=== PATIENT | male | born 1945 ===

== ENCOUNTER 2024-02-25 08:33 | Outpatient (REF) | payer OTHER, SELFPAY ==
[2024-02-25 08:53] LABS: MANUAL DIFF FLAG NO
[2024-02-25 09:44] LABS: Basophils Percent Auto 0.2 % (0-2); Eosinophils Absolute Auto 0.1 X10*3/uL (0.0-0.4); Eosinophils Percent Auto 1.2 % (0-4); Hematocrit 40.6 % (42.0-52.0); Hemoglobin 13.5 g/dl (14.0-18.0); Imm Gran Abs Auto 0.02 X10*3/uL (0.00-0.03); Imm Gran Pct Auto 0.3 % (0.0-0.4); Lymphocytes Absolute Auto 1.8 X10*3/uL (1.2-4.9); Lymphocytes Percent Auto 31.3 % (20-40); Mean Corpuscular HGB Conc 33.3 g/dl (31.0-36.0); Mean Corpuscular Hemoglobin 33.7 pg (27.0-33.0); Mean Corpuscular Volume 101.2 fL (80.0-98.0); Mean Platelet Volume 11.4 fL (9.4-12.4); Monocytes Absolute Auto 0.6 X10*3/uL (0.1-1.2); Monocytes Percent Auto 10.3 % (2-11); Neutrophils Absolute Auto 3.3 x10*3/uL (2.0-8.3); Neutrophils Percent Auto 56.7 % (45-73); Platelet Count 136 X10*3/uL (160-400); Red Blood Count 4.01 X10*6/uL (4.60-5.80); Red Cell Distribution Width 12.6 % (11.0-16.0); White Blood Count 5.9 X10*3/uL (4.8-10.8)
[2024-02-25 10:13] LABS: Parathyroid Hormone Intact 76.2 pg/mL (8.7-77.1)
[2024-02-25 10:15] LABS: Alanine Aminotransferase 13 U/L (0-40); Albumin Level 4.1 g/dL (3.5-5.0); Alkaline Phosphatase 67 U/L (39-117); Anion Gap 16 (12-20); Aspartate Amino Transferase 18 U/L (5-37); Bilirubin Total 0.6 mg/dL (0.0-1.0); Blood Urea Nitrogen 15 mg/dL (9-16); Calcium 7.5 mg/dL (8.4-10.2); Carbon Dioxide 27 mmol/L (22-29); Chloride 104 mmol/L (96-108); Cholesterol 197 mg/dL (<200); Estimated Glomerular Filt Rate > 60; Glucose Random 91 mg/dL (60-115); HDL Cholesterol 74 mg/dL (>40); LDL Cholesterol Calculated 107 mg/dL (<100); Phosphorus 3.5 mg/dL (2.7-4.5); Potassium 3.9 mmol/L (3.3-5.1); Sodium 143 mmol/L (135-145); Total Protein 7.1 g/dL (6.5-8.0); Triglycerides 80 mg/dL (<150)
[2024-02-25 11:08] LABS: Folate 10.4 ng/mL (> or = 4.0); Prostate Specific Antigen Scr 2.31 ng/mL (<0.05-4.0); Vitamin B12 872 pg/mL (200-900)
== END 2024-02-25 08:34 | disposition home or self-care (01) ==
LOC: HO.LAB 08:33
PROVIDERS: PCP Internal Medicine; Visit Provider Internal Medicine
DX: E78.00 Pure hypercholesterolemia, unspecified (principal); E83.52 Hypercalcemia; F02.80 Dementia in other diseases classified elsewhere, unspecified severity, without behavioral disturbance, psychotic disturbance, mood disturbance, and anxiety; F32.9 Major depressive disorder, single episode, unspecified; I10 Essential (primary) hypertension; N40.0 Benign prostatic hyperplasia without lower urinary tract symptoms; Z12.5 Encounter for screening for malignant neoplasm of prostate
CPT/HCPCS: 36415; 80053; 80061; 82306; 82607; 82746; 83970; 84100; 84153; 85025

== ENCOUNTER 2024-06-29 13:05 | Outpatient (AMB) | payer OTHER, SELFPAY ==
[2024-06-29 13:10] VITALS: BP 100/60; PULSE 51; BMI 18.9
--- NOTE | 2024-06-29 13:10 | A.OFFVIS_ITS ---
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 Not much history from patient due to dementia. His family including his and granddaughter are here. We also have a paraprofessional interpreter assisting. Essentially, patient was living in [place] but has now moved to the local area. They are not able to clearly say what the cardiac problems. Per an echocardiogram at [facility], LVEF was diminished at 30-35%. At that time, it seems that he was admitted for witnessed syncope/unresponsiveness and chest pain. After that, it appears that the patient had an implantable loop recorder placed after returning to his [place]. Now he is moving to the local area. He denies any clear-cut complaints like angina or shortness of breath. He states he feels okay. [facility] Medical History (Updated 06/29/24 @ 14:09 by Levi Ochoa MD) Implantable loop recorder present Cardiomyopathy Dementia Surgical History (Updated 06/29/24 @ 13:29 by Jana Camacho) History of thyroid surgery Family History (Updated 06/29/24 @ 13:31 by Jana Camacho) Father Cancer Mother No problems noted. Brother Heart attack Social History (Updated 06/29/24 @ 13:32 by Jana Camacho) Alcohol intake: never Patient Tobacco Use Status: Former Tobacco user Review of Systems Const Denies weakness ENT Denies dizziness Card Denies chest pain, Denies chest pain with activity, Denies syncope, Denies rapid heart rate, Denies pedal edema, Denies edema, Denies leg edema, Denies lightheadedness, Denies palpitations, Denies dyspnea, Denies dyspnea on exertion and Denies orthopnea Resp Denies cough, Denies dyspnea and Denies dyspnea on exertion GI Denies hematochezia and Denies change in stool character Musc Denies abnormal gait, Denies muscle cramps, Denies muscle weakness, Denies numbness, Denies radiating pain into limb and Denies tingling Neuro Denies abnormal gait, Denies dizziness, Denies syncope, Denies numbness, Denies tingling and Denies weakness Endo Denies palpitations Physical Exam Vital Signs: Last Vital Signs Pulse 51 06/29/24 13:10 BP 100/60 06/29/24 13:10 BMI result Body Mass Index 18.9 Const General: comfortable and no acute distress Orientation/consciousness: patient oriented x3 HEENT Other: Unremarkable Head: Yes normal to inspection Neck Neck: Yes normal visual inspection Chest Chest palpation & inspection: normal inspection of the chest Resp Auscultation: clear to auscultation bilaterally Cardio Palpation: normal PMI Heart sounds: S1 normal heart sound present, S2 normal heart sound present, no gallops, no murmurs and no rubs GI Palpation (GI): Soft to palpation Back/Spine/Pelvis Other: unremarkable Skin General skin exam: no rashes or lesions noted Neuro General: patient oriented x3 Extrem General: Yes normal to inspection Psych Mental Status: mental status grossly normal Office Procedures EKG Details: EKG with underlying sinus bradycardia at 51/Min; leftward axis; borderline GA prolongation to 202 millisecond; [place]. [id number]-[id number], Complete Assessment & Plan Assessment & Plan (1) Cardiomyopathy: Code(s): I42.9 - Cardiomyopathy, unspecified Category: Medical Plan: Per echocardiogram at [facility] in 2021, LVEF 30-35% with severe global hypokinesis. There was fopo-xn-uxnyvajw mitral regurgitation. Need to obtain cardiac records from [place]. Unclear what kind of workup he has had. Patient or family do not know. Clinically, he seems quite compensated. (2) Implantable loop recorder present: Code(s): Z95.818 - Presence of other cardiac implants and grafts Category: Medical Plan: We will arrange remote monitoring. It appears that was placed because of syncope. Plan Plan is to obtain echocardiogram, request old records from [place] and will transfer remote implantable loop recorder monitoring to us. Discussed with family. paraprofessional interpreter used. Orders: Orders CA echo transthoracic complete Today I42.9 - Cardiomyopathy, unspecified Coding Level of Care Code New Pt Level 4 (49338) Diagnoses Cardiomyopathy I42.9 Implantable loop recorder present Z95.818 CPT Codes EKG - CPT: 98608-Avpuglsbrztzjrfyn, Complete ([id number])
== END 2024-06-29 13:56 | disposition home or self-care (01) ==
PROVIDERS: PCP Internal Medicine; Visit Provider Internal Medicine
DX: I42.9 Cardiomyopathy, unspecified (principal); Z95.818 Presence of other cardiac implants and grafts
CPT/HCPCS: 93010; 99204

== ENCOUNTER → 2024-06-29 13:05 | Outpatient (BNVA) | payer OTHER, SELFPAY | PROVIDERS: PCP Internal Medicine; Visit Provider Internal Medicine | DX: I42.9 Cardiomyopathy, unspecified (principal); Z95.818 Presence of other cardiac implants and grafts | CPT/HCPCS: 93005; 99202 ==

== ENCOUNTER → 2024-07-22 10:22 | Outpatient (REF) | payer OTHER, SELFPAY ==
--- NOTE | 2024-07-22 10:24 | CA_ITS ---
Transthoracic Echocardiogram Patient (Last, First, Middle): Adonay Ventura, Gender: Male Date of : 1945 Age: 79 Procedure Date: 07/22/2024 Procedure Type: Transthoracic Echocardiogram Location: OP Height: 160.02 cm Weight: 50.8 kg BSA: 1.51 m2 Heart Rate: bpm BP: 120 / 70 mmHg Customer Servicer: NAYA Referring MD: Levi Ochoa MD Symptoms: I42.9 - Cardiomyopathy, unspecified Study Quality: Adequate ECG Rhythm: Sinus Conclusions: - The left ventricular systolic function is low normal. The visually estimated ejection fraction is between 50-55%. - The inferolateral wall is akinetic. Findings Left Ventricle Normal left ventricular cavity size. There is normal left ventricular wall thickness. The left ventricular systolic function is low normal. The visually estimated ejection fraction is between 50-55%. There is evidence of regional wall motion abnormalities. Diastolic function is normal for age. LV peak GLS -17.3%. Wall Motion Rest Echo Findings The inferolateral wall is akinetic. Right Ventricle Normal right ventricular cavity size and systolic function. Atria Both atria are normal in size. Aortic Valve There is a normal trileaflet aortic valve. There is mild calcification of the aortic valve. There is no aortic valve stenosis. There is trace (trivial) aortic valve regurgitation. Mitral Valve The mitral valve appears normal. There is mild mitral valve regurgitation. There is no mitral valve stenosis. Pulmonic Valve The pulmonic valve is likely normal. Tricuspid Valve There is no tricuspid valve regurgitation. Tricuspid regurgitation envelope is inadequate for calculation of right ventricular systolic pressure. Great Vessels The aorta was not well visualized. Venous The inferior vena cava is normal in size and collapses greater than 50% with inspiration. Pericardium/Pleural There is no evidence of pericardial effusion. Prior Study Comparison No prior study available for comparison. Recommendations, Care & Conclusions No obvious valvular pathology seen on this study. Measurements 2D Linear Measurements IVSd: 0.80 0.6-0.9/0.6-1.0 cm LVIDd: 4.26 3.9-5.3/4.2-5.9 cm LVIDd Index: 2.82 2.4-3.2/2.2-3.1 cm/m2 LVIDs: 2.98 2.0-3.6 cm LVPWd: 1.08 0.7-1.1 cm LA Diam: 2.70 2.7-3.8/3.0-4.0 cm LAIDs Index: 1.79 1.5-2.3 cm/m2 LV Mass: 160.45 67-162/88-224 g LV Mass Index: 106.26 43-95/49-115 g/m2 LVOT Diam: 2.00 3.0+(-)1.3 cm 2D Systolic Function EF 4C: 57.30 >55% EF 2C: 59.60 >55% EF BiP: 57.60 >55% Mitral Valve MV Pk E: 0.46 MV PK A: 0.72 MV Decel Time: 212.00 E/A: 0.60 E'Lateral: 7.72 E'Medial: 6.53 E/E' Med: 7.00 E/E' Lat: 5.90 PHT: 62.00 MVA PHT: 3.55 Decel [place]: 2.16 Aortic Valve AoV Pk Maximilian: 1.15 AoV Mn Maximilian: 0.77 AoV VTI: 0.23 AoV Pk Grad: 5.00 Aov Mn Grad: 3.00 JOHANN Cont.VTI: 2.95 LVOT LVOT Pk Maximilian: 1.07 LVOT Mn Maximilian: 0.72 LVOT VTI: 0.22 LVOT Pk Grad: 5.00 LVOT Mn Grad: 2.00 LVOT Diam: 2.00 LVOT Area: 3.14 Diastolic Function MV Pk E: 0.46 MV Pk A: 0.72 E/A: 0.60 E'Medial: 6.53 E/E' Med: 7.00 E' Laterial: 7.72 E/E' Lat: 5.90 Right Ventricle TAPSE (mm): 24.80 TVS' Maximilian: 10.20 Tricuspid Valve RA Press: 3.00 Great Vessels Aorta Sinus of Valsalva: 4.08 2.0-3.5 cm Updated in Other Vendor System with Status of Final Levi Ochoa MD electronically signed on 07/23/2024 6:35:34 PM with status of Final
== END ==
LOC: HO.CARD 10:22
PROVIDERS: PCP Internal Medicine; Visit Provider Internal Medicine
DX: I42.9 Cardiomyopathy, unspecified (principal)
CPT/HCPCS: 93306; 93356

== ENCOUNTER → 2024-07-22 10:24 | Outpatient (BNV) | payer OTHER, SELFPAY | PROVIDERS: PCP Internal Medicine; Visit Provider Internal Medicine | DX: I34.0 Nonrheumatic mitral (valve) insufficiency (principal); I35.8 Other nonrheumatic aortic valve disorders | CPT/HCPCS: 93306; 93356 ==

== ENCOUNTER 2024-08-03 10:59 | Outpatient (AMB) | payer OTHER, SELFPAY ==
[2024-08-03 11:23] VITALS: BP 116/60; PULSE 68; BMI 18.5
--- NOTE | 2024-08-03 11:23 | A.OFFVIS_ITS ---
Vital Signs 08/03/24 11:23 Height 5 ft 4 in Weight 108 lb 0.424 oz BMI 18.5 BP 116/60 Blood Pressure Location Lt brachial Position Sitting Pulse 68 Pulse Source Pulse Oximeter Intake Visit Reasons: * 1 mth f/up echo/ records [facility] Structural Analysis Engineer Required: Yes Structural Analysis Engineer Services: Structural Analysis Engineer Offered & Declined Allergies No Known Allergies Allergy (Verified 06/29/24 13:39) Medication List - Last Reconciled 08/03/24 by Levi Ochoa MD aspirin 81 mg PO DAILY escitalopram oxalate 5 mg PO DAILY rosuvastatin 40 mg PO DAILY tamsulosin 0.4 mg PO DAILY HPI Comments Details: Adonay returns for follow-up. Not much history from patient due to dementia. His family including his and daughter are here. Essentially, patient was living in [place] but has now moved to the local area. They are not able to clearly say what the cardiac problems. Per an echocardiogram at [facility], LVEF was diminished at 30-35%. At that time, it seems that he was admitted for witnessed syncope/unresponsiveness and chest pain. After that, it appears that the patient had an implantable loop recorder placed after returning to his [place]. Now he is moving to the local area. Patient himself has no cardiac symptoms whatsoever. [facility] Medical History (Updated 06/29/24 @ 14:09 by Levi Ochoa MD) Implantable loop recorder present Cardiomyopathy Dementia Surgical History (Updated 06/29/24 @ 13:29 by Jana Camacho) History of thyroid surgery Family History (Updated 06/29/24 @ 13:31 by Jana Camacho) Father Cancer Mother No problems noted. Brother Heart attack Social History (Updated 06/29/24 @ 13:32 by Jana Camacho) Alcohol intake: never Patient Tobacco Use Status: Former Tobacco user Review of Systems Const Denies chills, Denies fatigue, Denies fever(s), Denies weakness, Denies weight gain and Denies weight loss ENT Denies dizziness Card Denies chest pain, Denies chest pain with activity, Denies syncope, Denies rapid heart rate, Denies pedal edema, Denies edema, Denies leg edema, Denies lightheadedness, Denies palpitations, Denies dyspnea, Denies dyspnea on exertion, Denies orthopnea and Denies other Resp Denies cough, Denies dyspnea and Denies dyspnea on exertion GI Denies hematochezia and Denies change in stool character Musc Denies abnormal gait, Denies muscle cramps, Denies muscle weakness, Denies numbness, Denies radiating pain into limb and Denies tingling Neuro Denies abnormal gait, Denies dizziness, Denies syncope, Denies numbness, Denies tingling and Denies weakness Endo Denies fatigue and Denies palpitations Physical Exam Vital Signs: Last Vital Signs Pulse 68 08/03/24 11:23 BP 116/60 08/03/24 11:23 BMI result Body Mass Index 18.5 Const General: comfortable and no acute distress Orientation/consciousness: patient oriented x3 HEENT Other: Unremarkable Head: Yes normal to inspection Neck Neck: Yes normal visual inspection Chest Chest palpation & inspection: normal inspection of the chest Resp Auscultation: clear to auscultation bilaterally Cardio Palpation: normal PMI Heart sounds: S1 normal heart sound present, S2 normal heart sound present, no gallops, no murmurs and no rubs GI Palpation (GI): Soft to palpation Back/Spine/Pelvis Other: unremarkable Skin General skin exam: no rashes or lesions noted Neuro General: patient oriented x3 Extrem General: Yes normal to inspection Psych Mental Status: mental status grossly normal Assessment & Plan Assessment & Plan (1) Cardiomyopathy: Code(s): I42.9 - Cardiomyopathy, unspecified Category: Medical Plan: Cardiac studies reviewed. Per echocardiogram at [facility] in 2021, LVEF 30-35% with severe global hypokinesis. There was rkwd-ed-lejboboq mitral regurgitation. In the more recent echocardiogram at [place], LVEF 50-55%. Inferolateral akinesis. In another echocardiogram from [place], 2022, LVEF 50-55%. Inferolateral wall thinned/severely hypokinetic. Uuog-pw-qjcmzjey mitral regurgitation. Nata-ma-zrcuipvz aortic regurgitation with mild ascending aortic dilatation. RVSP 37 mm Hg. In the exercise stress echocardiogram at [place], 7 METS on Arnel protocol; negative ETT component; echocardiographic portion with evidence of prior inferolateral [place]. Overall, it seems that he has had a prior inferolateral myocardial infarction but no active symptoms. It does not appear that he underwent cardiac catheterization in the past and he does not need that at this time either as he has got no symptoms. Continue aspirin and statins. (2) Implantable loop recorder present: Code(s): Z95.818 - Presence of other cardiac implants and grafts Category: Medical Plan: Will need to transfer remote monitoring from his prior javascript ui developer. Plan Discussed with family. They understand and agree with plan. Total time spent including review of data, counseling, documentation, coordination of care-32 minutes. Coding Level of Care Code Est Pt Level 4 (25048) Diagnoses Cardiomyopathy I42.9 Implantable loop recorder present Z95.818
== END 2024-08-03 11:38 | disposition home or self-care (01) ==
PROVIDERS: PCP Internal Medicine; Visit Provider Internal Medicine
DX: I42.9 Cardiomyopathy, unspecified (principal); Z95.818 Presence of other cardiac implants and grafts
CPT/HCPCS: 99214

== ENCOUNTER → 2024-08-03 10:59 | Outpatient (BNVA) | payer OTHER, SELFPAY | PROVIDERS: PCP Internal Medicine; Visit Provider Internal Medicine | DX: I42.9 Cardiomyopathy, unspecified (principal); Z95.818 Presence of other cardiac implants and grafts | CPT/HCPCS: 99212 ==

== ENCOUNTER 2024-08-31 08:33 | Outpatient (REF) | payer OTHER, SELFPAY ==
[2024-08-31 09:01] LABS: MANUAL DIFF FLAG NO
[2024-08-31 09:15] LABS: Basophils Percent Auto 0.2 % (0-2); Eosinophils Absolute Auto 0.1 X10*3/uL (0.0-0.4); Eosinophils Percent Auto 1.5 % (0-4); Hematocrit 45.1 % (42.0-52.0); Hemoglobin 15.2 g/dl (14.0-18.0); Imm Gran Abs Auto 0.02 X10*3/uL (0.00-0.03); Imm Gran Pct Auto 0.4 % (0.0-0.4); Lymphocytes Absolute Auto 1.5 X10*3/uL (1.2-4.9); Lymphocytes Percent Auto 32.5 % (20-40); Mean Corpuscular HGB Conc 33.7 g/dl (31.0-36.0); Mean Corpuscular Hemoglobin 33.1 pg (27.0-33.0); Mean Corpuscular Volume 98.3 fL (80.0-98.0); Monocytes Absolute Auto 0.5 X10*3/uL (0.1-1.2); Monocytes Percent Auto 11.3 % (2-11); Neutrophils Absolute Auto 2.5 x10*3/uL (2.0-8.3); Neutrophils Percent Auto 54.1 % (45-73); Platelet Count 127 X10*3/uL (160-400); Red Blood Count 4.59 X10*6/uL (4.60-5.80); Red Cell Distribution Width 12.7 % (11.0-16.0); White Blood Count 4.7 X10*3/uL (4.8-10.8)
[2024-08-31 09:50] LABS: Alanine Aminotransferase 15 U/L (0-40); Albumin Level 4.1 g/dL (3.5-5.0); Alkaline Phosphatase 52 U/L (39-117); Anion Gap 15 (12-20); Aspartate Amino Transferase 19 U/L (5-37); Bilirubin Total 0.6 mg/dL (0.0-1.0); Blood Urea Nitrogen 17 mg/dL (9-16); Calcium 9.6 mg/dL (8.4-10.2); Carbon Dioxide 31 mmol/L (22-29); Chloride 100 mmol/L (96-108); Estimated Glomerular Filt Rate > 60; Glucose Random 103 mg/dL (60-115); Phosphorus 3.7 mg/dL (2.7-4.5); Sodium 142 mmol/L (135-145); Total Protein 7.3 g/dL (6.5-8.0)
[2024-08-31 10:08] LABS: Parathyroid Hormone Intact 44.1 pg/mL (8.7-77.1)
== END 2024-08-31 08:34 | disposition home or self-care (01) ==
LOC: HO.LAB 08:33
PROVIDERS: PCP Internal Medicine; Visit Provider Internal Medicine
DX: D69.6 Thrombocytopenia, unspecified (principal); E83.51 Hypocalcemia; E89.2 Postprocedural hypoparathyroidism; F02.80 Dementia in other diseases classified elsewhere, unspecified severity, without behavioral disturbance, psychotic disturbance, mood disturbance, and anxiety; I10 Essential (primary) hypertension
CPT/HCPCS: 36415; 80053; 83970; 84100; 85025

== ENCOUNTER 2024-09-27 08:50 | Outpatient (AMB) | payer OTHER, SELFPAY ==
--- NOTE | 2024-09-27 09:07 | A.OFFVIS_ITS ---
Intake Visit Reasons: history of hematuria Intake Note: New Patient presents for initial visit for hematuria Urology Medications: none Blood Thinner: aspirin * Smoker: former; quit 3-4yrs ago, smoked 50+yrs * visual blood 2months ago [employer] Required: Yes Accompanied by: Unknown Allergies No Known Allergies Allergy (Verified 09/27/24 09:37) Medication List - Last Reconciled 09/27/24 by BRENDON Gruber aspirin 81 mg PO DAILY escitalopram oxalate 5 mg PO DAILY rosuvastatin 40 mg PO DAILY HPI Comments Details: Adonay is a pleasantly confused 79-year-old Belarusian-speaking male patient of Dr. Leroy Bonilla who was accompanied by his daughter (Stan) and at today's office visit. He has a past medical history of dementia and cardiomyopathy. He presents to the office today as a new patient for gross hematuria. In discussion with the daughter who provides much of today's health history as patient suffers from dementia she reports patient had experienced an episode of gross hematuria for a few days a proximally 2 days ago. She does report a previous history of surgical intervention on the bladder and or the prostate however is unsure as to what procedure the patient had done in [place] where he used to live. She reports having followed up with a PCP at which time urology referral was made for further assessment evaluation. In office urinalysis results reviewed with the patient and his family today. We discussed at length potential causes of gross hematuria as well as further workup. When asked he does report a previous history of nicotine dependence for over 50 years. He reports smoking approximately 1 pack of cigarettes per day if not more. He reports quitting 3-4 years ago. In review of patient's chart it appears CT of the abdomen and pelvis without contrast was performed. These results no punctate nonobstructing renal calculi. There is thickening of the wall of the urinary bladder. This may be related to lack of distention but can be seen with infection and correlation with patient's urinalysis is recommended per radiology report. We discussed obtaining imaging with contrast given gross hematuria patient is experiencing and reporting. He does note episodes of urinary frequency throughout the day however does not find them bothersome at this time. He otherwise denies urinary urgency, incontinence, nocturia, dysuria, foul smelling urine, changes to urinary stream, flank pain, fever, and or chills. [facility] Medical History Implantable loop recorder present Cardiomyopathy Dementia Surgical History History of thyroid surgery Family History Father Cancer Mother No problems noted. Brother Heart attack Social History Alcohol intake: never Patient Tobacco Use Status: Former Tobacco user Review of Systems Const Unobtainable due to mental status Physical Exam Const General: cooperative, healthy appearing, comfortable, no acute distress, well developed, alert and awake Orientation/consciousness: patient oriented x3 Limitations: no limitations HEENT Head: Yes normal to inspection, Yes normocephalic and Yes atraumatic Ears: hearing grossly normal bilaterally Eyes General: appearance normal, both eyes and all related structures Neck Neck: Yes normal visual inspection and Yes trachea midline Chest Chest palpation & inspection: normal inspection of the chest Resp Effort & Inspection: normal respiratory effort and able to speak in complete sentences Cardio Rate: regular rate GI Inspection: Yes normal to inspection General: Yes no CVA tenderness Back/Spine/Pelvis Back: no CVA tenderness Skin General skin exam: no rashes or lesions noted Neuro General: patient oriented x3 Extrem General: Yes normal to inspection Psych Appearance: grossly normal and well kempt Speech and movement: Normal speech and movement present and Clear speech present Affect: normal affect Attitude: cooperative Insight: Limited insight present (Psych) Judgement: Limited judgement present (Psych) Assessment & Plan Assessment & Plan (1) Gross hematuria: Code(s): R31.0 - Gross hematuria Category: Medical (2) Nephrolithiasis: Code(s): N20.0 - Calculus of kidney Category: Medical Plan In office urinalysis results reviewed with the patient and his family today; will send for urine cytology. We discussed at length potential causes of gross hematuria as well as further workup to include CT urogram and in office cystoscopy for further assessment evaluation. BUN and creatinine ordered for imaging. Will obtain CT urogram for further assessment evaluation. Patient otherwise denies any bothersome urinary issues at this time. He reports be happy with current voiding parameters. Follow-up next available in office cystoscopy with imaging and labs to be completed prior; or sooner with any issues, concerns, and or questions. Orders: Orders CT urogram Today R31.0 - Gross hematuria Blood Urea Nitrogen Today R39.15 - Urgency of urination AMB Urinalysis Automated Today Z13.9 - Encounter for screening, unspecified Urine Cytology Today Z13.9 - Encounter for screening, unspecified Creatinine Today R39.15 - Urgency of urination Patient Instructions: The patient had an opportunity to ask questions regarding the treatment plan. All questions were answered. Physical exam, labs, and imaging were discussed and reviewed in detail. As well as risks, benefits, and discussion of treatment choices. No major barriers to understanding were identified. The patient expressed understanding and agreement with the above treatment plan. The patient was made aware they should contact our office by phone for worsening of their current condition, the appearance of new symptoms, or with any questions or concerns. Compliance is encouraged with any medications and follow up testing that is ordered. It is a privilege to be allowed the opportunity to participate in? your urological care.? Again, if you have any questions or concerns If you have any questions or concerns please do not hesitate to contact me. The office is [phone]. This note is constructed using voice recognition software. While every effort has been made to ensure accuracy agent contract clerk errors may have been included. Yours sincerely, BRENDON Gruber Coding Level of Care Code New Pt Level 3 (04331) Diagnoses Gross hematuria R31.0 Nephrolithiasis N20.0
== END 2024-09-27 09:54 | disposition home or self-care (01) ==
PROVIDERS: PCP Internal Medicine; Visit Provider Nurse Practitioner Family
DX: R31.0 Gross hematuria (principal); N20.0 Calculus of kidney
CPT/HCPCS: 99203

== ENCOUNTER 2024-09-27 08:50 | Outpatient (REF) | payer OTHER, SELFPAY ==
[2024-09-27 16:45] LABS: Urine Cytology See Pathology rpt
== END 2024-09-27 08:51 | disposition home or self-care (01) ==
LOC: HO.LNP 08:50
PROVIDERS: PCP Internal Medicine; Visit Provider Nurse Practitioner Family
DX: N20.0 Calculus of kidney (principal); R31.0 Gross hematuria
CPT/HCPCS: 88112; 99202

== ENCOUNTER 2024-11-03 09:42 | Outpatient (AMB) | payer OTHER, SELFPAY ==
--- NOTE | 2024-11-03 09:49 | A.OFFVIS_ITS ---
Intake Visit Reasons: Cysto(Hematuria) Intake Note: Pt presents to the office today for a Cystoscopy (hematuria) Cystoscope Lot: [id number] Exp:01/28/27 Allergies No Known Allergies Allergy (Verified 11/03/24 09:49) HPI Comments Details: Adonay is a pleasantly confused Romanian-speaking male. He is a patient of Dr. Bonilla. He is seen for the following urologic conditions - lower urinary tract symptoms Prior episode gross hematuria Here for check cystoscopy Enlarged prostate but otherwise normal bladder Start prostate medications Baseline dementia Hematuria CT imaging performed with thickening of the bladder wall [facility] Medical History History of nicotine dependence Implantable loop recorder present Cardiomyopathy Dementia Surgical History History of thyroid surgery Family History Father Cancer Mother No problems noted. Brother Heart attack Social History Alcohol intake: never Patient Tobacco Use Status: Former Tobacco user Review of Systems Const Denies chills and Denies fever(s) Card Reports no additional complaints and Denies syncope Resp Denies cough GI Denies abdominal pain and Denies heartburn Reports as per HPI and Denies change in libido Neuro Denies syncope Psych Denies change in libido Endo Denies change in libido Physical Exam Const General: cooperative, healthy appearing, comfortable and no acute distress Orientation/consciousness: patient oriented x3 HEENT Face and sinus: Yes normal facial exam Mouth: moist mucous membranes Neck Neck: Yes normal visual inspection, Yes full ROM and Yes trachea midline Chest Chest palpation & inspection: normal inspection of the chest Resp Effort & Inspection: normal respiratory effort, able to speak in complete sentences and no respiratory distress GI Inspection: Yes normal to inspection Back/Spine/Pelvis Cervical Spine: normal cervical lordosis Thoracic/Lumbar Spine: thoracic and lumbar spine normal to inspection Skin General skin exam: no rashes or lesions noted Neuro General: patient oriented x3, gait normal, tone normal and moves all extremities Extrem General: Yes normal to inspection and Yes capillary refill normal Office Procedures Cystoscopy Consent Discussed risk and benefit or proposed procedure with the patient. Information consent for procedure given to the patient. Discussed technical aspects, risks, benefits and alternatives in full. Addressed all of the patient's questions and concerns regarding the procedure. The patient demonstrated knowledge and understanding. They wish to proceed with this procedure. Preparation The patient was prepped in the usual manner. A occupational health professional was present and in the room. Genitalia was prepped with betadine solution in a sterile manner. Lidocaine Jelly 2% was placed into the urethra and 16Fr flexible Olympus cystoscope was inserted into the meatus after adequate lubrication. Procedure Cystoscopy performed using a disposable Urovue digital 16 Upper Sorbian cystoscope. Meatus uncircumcised, normal position Urethra anterior and posterior urethra normal Prostatic Urethra trilobar hypertrophy Bladder examination with retroflexion of cystoscope Bladder Orifices normal shape and position Bladder Capacity normal Trabeculations grade 1/2 Cellule Formation - Diverticulum Formation - Mucosal Erythema - Bladder Tumor - 56479-[id number] DISPOSABLE SCOPE URO-G FLEXIBLE SCOPE Procedure code (CPT) selection complete Office Meds lidocaine HCl 2 % mucosal jelly in applicator Performing Provider: Micky Tidwell MD [facility] Administered by: Jerome Ann LPN on 11/03/24 10:13 Dose Route Admin Location Dispensed Lot Number Expiration Date [facility] Construction [employer] 10 mL intra-urethral 10 mL Results AMB Urinalysis, Automated UA Leukoctes 0 Yuliana/uL Last Edit by Tiffanie Núñez CMA on 11/03/24 10:08 UA Nitrite Negative Last Edit by Tiffanie Núñez CMA on 11/03/24 10:08 UA Urobilinogen 0.2 mg/dL Last Edit by Tiffanie Núñez CMA on 11/03/24 10:08 UA Protein 15 mg/dL Last Edit by Tiffanie Núñez CMA on 11/03/24 10:08 UA pH 6.5 Last Edit by Tiffanie Núñez CMA on 11/03/24 10:08 UA Blood 25 Mat/uL Last Edit by Tiffanie Núñez CMA on 11/03/24 10:08 UA Specific [place] 1.015 Last Edit by Tiffanie Núñez CMA on 11/03/24 10:08 UA Ketone Negative Last Edit by Tiffanie Núñez CMA on 11/03/24 10:08 UA Bilirubin 0 mg/dL Last Edit by Tiffanie Núñez CMA on 11/03/24 10:08 UA Glucose 0 mg/dL Last Edit by Tiffanie Núñez CMA on 11/03/24 10:08 Results Reviewed Results Reviewed: Laboratory Last Values Urine pH (Auto) 6.5 11/03/24 10:00 Specific [place] (Auto) 1.015 11/03/24 10:00 Urine Protein (Auto) 15 mg/dL 11/03/24 10:00 Glucose (UA)(Auto) 0 mg/dL 11/03/24 10:00 Urine Ketones (Auto) Negative 11/03/24 10:00 Urine Blood (Auto) 25 Mat/uL 11/03/24 10:00 Urine Nitrite (Auto) Negative 11/03/24 10:00 Urine Bilirubin (Auto) 0 mg/dL 11/03/24 10:00 Urine Urobilinogen (Auto) 0.2 mg/dL 11/03/24 10:00 Leukocyte Esterase (Auto) 0 Yuliana/uL 11/03/24 10:00 Assessment & Plan Assessment & Plan (1) Bladder outlet obstruction: Code(s): N32.0 - Bladder-neck obstruction Category: Medical Plan Initiate prostate medications Six-month follow-up nurse-practitioner PVR orifice Orders: Orders AMB Urinalysis Automated Today R31.0 - Gross hematuria AMB Cystoscopy Today N20.0 - Calculus of kidney, R31.0 - Gross hematuria Medications: New finasteride 5 mg PO DAILY 90 days 90 tabs 1RF N13.8 - Other obstructive and reflux uropathy, N32.0 - Bladder-neck obstruction, N40.1 - Benign prostatic hyperplasia with lower urinary tract symptoms, R33.9 - Retention of urine, unspecified tamsulosin 0.4 mg PO BEDTIME 90 days 90 caps 1RF N13.8 - Other obstructive and reflux uropathy, N32.0 - Bladder-neck obstruction, N40.1 - Benign prostatic hyperplasia with lower urinary tract symptoms Patient Instructions: This note is constructed using voice recognition software. While every effort has been made to ensure accuracy alodize machine helper errors may have been included. Imaging studies, laboratory and physical exam results were discussed and reviewed in detail. No major barriers to patient understanding were identified. An opportunity to ask questions regarding the treatment plan was provided. All questions were answered. The patient expressed understanding and agreement with the above treatment plan. The patient is aware they should contact our office by phone for worsening of their current condition or the appearance of new urologic symptoms. Compliance is encouraged with any medications and followup testing that is ordered. It is a privilege to participate in the urologic care of your patient. If you have any questions or concerns regarding treatment for the above conditions, or other urologic issues, please do not hesitate to contact me. The office telephone contact is [phone]. Sincerely, Dr Micky Tidwell MD, [facility] - Urology Compassionate Specialist Care for the Genitourinary System Coding Level of Care Code Est Pt Level 4 (86534) Diagnoses Bladder outlet obstruction N32.0 CPT Codes Cystoscopy - CPT: 43427-[id number] ([id number])
--- OUTSIDE RECORDS SUMMARY | 2024-11-03 10:59 | XMS_ITS | Clinical Summary ---
Author Organization [facility] Address [address] [facility] [address] [place] [address] Phone Care Team Providers Care Processing Technician Name Role Phone Unavailable Primary Care Provider Unavailabl e Allergies No known active allergies Medications atorvastatin (LIPITOR) 40 MG tablet Take 40 mg by mouth every night 05/13/2022 Active Active Problems Problem Noted Date Diagnosed Date Underweight 06/17/2022 Heart failure 05/09/2022 Unspecified dementia, unspec ified severity, without behavioral disturbance, psychotic disturbance, mood disturbance, and anxiety 05/09/2022 Social History Tobacco Use Types Packs/Day Years Used Date Smoking Tobacco: Unknown Tobacco Cessation:Counseling Given: Not Answered Sex and Gender Information Value Date Recorded Sex Assigned at Not on file Legal Sex Male 10:09 AM EDT Gender Identity Not on file Sexual Orientation Not on file Plan of Treatment Health Maintenance Due Date Last Done Comments Pneumococcal Vaccine: 65+ Ye ars (1 of 2 - PCV) 02/03/1951 Influenza Vaccine (#1) 2024 Hepatitis B Vaccine Aged Out No longe r eligible based on patient's age to complete this topic Insurance [facility] [place] [id number] [place] [address] [place] [id number]
== END 2024-11-03 10:34 | disposition home or self-care (01) ==
PROVIDERS: PCP Internal Medicine; Visit Provider Urology
DX: R31.0 Gross hematuria (principal); N20.0 Calculus of kidney; N32.0 Bladder-neck obstruction
CPT/HCPCS: 52000

== ENCOUNTER → 2024-11-03 09:42 | Outpatient (BNVA) | payer OTHER, SELFPAY | PROVIDERS: PCP Internal Medicine; Visit Provider Urology | DX: N32.0 Bladder-neck obstruction (principal) | CPT/HCPCS: 52000; 81003 ==

== ENCOUNTER 2024-11-09 08:12 | Outpatient (REF) | payer OTHER, SELFPAY ==
--- OUTSIDE RECORDS SUMMARY | 2024-11-09 08:16 | XMS_ITS | Clinical Summary ---
Author Organization [facility] Address [address] [facility] [address] [place] [address] Phone Care Team Providers Care Client Technical Support Associate Name Role Phone Unavailable Primary Care Provider [...] to complete this topic Insurance [facility] TC [place] [id number] [place] [address] [place] [id number]
[2024-11-09 09:23] LABS: Blood Urea Nitrogen 22 mg/dL (9-16); Estimated Glomerular Filt Rate > 60
== END 2024-11-09 08:13 | disposition home or self-care (01) ==
LOC: HO.LAB 08:12
PROVIDERS: PCP Internal Medicine; Visit Provider Nurse Practitioner Family
DX: R39.15 Urgency of urination (principal)
CPT/HCPCS: 36415; 82565; 84520

== ENCOUNTER 2024-11-18 15:32 | Outpatient (REF) | payer OTHER, SELFPAY ==
--- NOTE | ~2024-11-18 | CT_ITS ---
CLINICAL HISTORY: R31.0 - Gross hematuria CT abdomen and pelvis with and without contrast Comparison: None Findings: The lung bases are clear. The gallbladder and solid organs are within normal limits. No renal stones. No bowel obstruction, pneumoperitoneum, or pneumatosis. Urinary bladder wall is concentrically thickened. Correlate for cystitis. Pelvic contents otherwise unremarkable. Normal appendix. No acute fracture. IMPRESSION: Possible cystitis. Correlate clinically. This document has been electronically signed by: Chilo Thompson MD on 11/19/2024 08:43:32
[2024-11-18] MEDS: iohexoL 350 MG/ML 100 ML INFUS..BTL IV (16:30)
--- OUTSIDE RECORDS SUMMARY | 2024-11-18 18:54 | XMS_ITS | Clinical Summary ---
Author Organization [facility] Address [address] [facility] [address] [place] [address] Phone Care Team Providers Care International Guest Coordinator Name Role Phone Unavailable Primary Care Provider [...] patient's age to complete this topic Insurance [facility] TC [place] [id number] [place] [address] [place] [id number]
== END 2024-11-18 15:33 | disposition home or self-care (01) ==
LOC: HO.CT 15:32
PROVIDERS: PCP Internal Medicine; Visit Provider Nurse Practitioner Family
DX: R31.0 Gross hematuria (principal); Z87.891 Personal history of nicotine dependence
CPT/HCPCS: 74178; Q9967

== ENCOUNTER → 2024-11-18 15:34 | Outpatient (BNV) | payer OTHER, SELFPAY | PROVIDERS: PCP Internal Medicine; Visit Provider Specialist | DX: R31.0 Gross hematuria (principal) | CPT/HCPCS: 74178 ==

== ENCOUNTER 2024-12-20 15:03 | Outpatient (AMB) | payer OTHER, SELFPAY ==
--- NOTE | 2024-12-20 15:30 | A.OFFVIS_ITS ---
Vital Signs 12/20/24 15:31 Height 5 ft 4 in Weight 103 lb 9.876 oz BMI 17.8 BP 118/79 Blood Pressure Location Lt brachial Position Sitting Pulse 80 Pulse Source Monitor Intake Visit Reasons: 4 mth f/up Firer Electric Locomotive Required: No Vehicle Sales Professional: Vehicle Sales Professional Present Allergies No Known Allergies Allergy (Verified 12/20/24 15:33) Medication List - Last Reconciled 12/20/24 by Laisha Evangelista NP-C aspirin 81 mg PO DAILY escitalopram oxalate 5 mg PO DAILY finasteride 5 mg PO DAILY 90 days rosuvastatin 40 mg PO DAILY tamsulosin 0.4 mg PO BEDTIME 90 days HPI HPI 4 mth f/up: Details: Adonay is an 79-year-old male with past medical history of dementia, evidence of prior inferior lateral [place], mild cardiomyopathy, implanted loop recorder in place who presents for follow-up. Today he presents with his daughter who is assisting with Indonesian translation. She tells me he has been doing well with no concerning symptoms. No reported chest discomfort, shortness of breath, heart palpitations, presyncope, syncope. He does only light physical activity. He is compliant with his medications. His loop recorder was placed due to prior bradycardia with heart rates in the 20s, According to her. Patient previously lived in [place] however moved to this area prior to last visit. [facility] Medical History (Updated 12/20/24 @ 17:06 by Laisha Evangelista, ALTON-Deep) History of nicotine dependence Implantable loop recorder present Cardiomyopathy Dementia Surgical History History of thyroid surgery Family History Father Cancer Mother No problems noted. Brother Heart attack Social History Alcohol intake: never Patient Tobacco Use Status: Former Tobacco user Review of Systems Const All systems reviewed & are unremarkable except as noted in HPI and below Card Denies no additional complaints, Denies chest pain, Denies chest pain at rest, Denies chest pain with activity, Denies rapid heart rate, Denies leg edema, Denies dyspnea, Denies dyspnea on exertion and Denies orthopnea Resp Denies dyspnea and Denies dyspnea on exertion Musc Denies no additional complaints Neuro Denies no additional complaints Physical Exam Vital Signs: Last Vital Signs Pulse 80 12/20/24 15:31 BP 118/79 12/20/24 15:31 BMI result Body Mass Index 17.8 Const Other: Thin built General: cooperative, comfortable and no acute distress Orientation/consciousness: patient oriented x3 Neck Neck: Yes normal visual inspection Chest Other: loop recorder in place Left chest Chest palpation & inspection: normal inspection of the chest Resp Effort & Inspection: normal respiratory effort Auscultation: clear to auscultation bilaterally, no rales, no rhonchi and no wheezes Cardio Rate: regular rate Rhythm: regular rhythm Heart sounds: S1 normal heart sound present, S2 normal heart sound present, no gallops, no murmurs and no rubs Skin General skin exam: no rashes or lesions noted Neuro General: patient oriented x3 Extrem General: Yes normal to inspection, No no pedal edema and No calf tenderness Psych Appearance: grossly normal Mental Status: mental status grossly normal Speech and movement: Normal speech and movement present Office Procedures Cardiac Device Check Cardiac Device Check Details: [facility] [place] JOT interrogation today, no alert episodes since 12/08/24. No afib. - Remote monitoring still going to dr in [place] [id number] Cardiac Interrogation, subcut cardiac rhythm monitor Procedure code (CPT) selection complete Assessment & Plan Assessment & Plan (1) Cardiomyopathy: Code(s): I42.9 - Cardiomyopathy, unspecified Category: Medical Plan: History of cardiomyopathy with EF as low as 30-35% with global hypokinesis As seen on [facility] echo, 05/05/2022. He then was living in [place] and moved to this area again recently. Most recent echo done in [place] was 07/22/2024 shows EF 50-55%, inferior lateral akinesis. A stress echocardiogram 07/14/2024 showed evidence of prior inferior lateral [place]Y, no ischemia. He does not appear fluid overloaded on exam. Signs and symptoms of heart failure reviewed with daughter. (2) Inferolateral myocardial infarction: Code(s): I21.19 - ST elevation (STEMI) myocardial infarction involving other coronary artery of inferior wall Category: Medical Plan: Testing as above shows evidence of prior inferior lateral WY. no reports of anginal sounding symptoms. Continue aspirin indefinitely. Continue atorvastatin with ideal LDL goal less than 70. Blood pressure currently well controlled. (3) Implantable loop recorder present: Code(s): Z95.818 - Presence of other cardiac implants and grafts Category: Medical Plan: [place] ILR placed in [place] 1 year ago For bradycardia according to daughter. interrogation today shows no recent alerts. Currently his remote monitoring is still going to his [place] [employer] in spite of several calls to that office and letter. I have asked his daughter to contact them and request that they release his remote monitoring to us. (4) Dementia: Code(s): F03.90 - Unspecified dementia, unspecified severity, without behavioral disturbance, psychotic disturbance, mood disturbance, and anxiety Category: Medical Plan time spent on chart review, documentation, interview and assessment Coding Level of Care Code Est Pt Level 4 (46883) Complex EM visit Add On G2211 Diagnoses Cardiomyopathy I42.9 Inferolateral myocardial infarction I21.19 Implantable loop recorder present Z95.818 Dementia F03.90 CPT Codes Cardiac Device Check - Cardiac Device 16: [id number] Cardiac Interrogation, subcut cardiac rhythm monitor ([id number])
[2024-12-20 15:31] VITALS: BP 118/79; PULSE 80; BMI 17.8
--- OUTSIDE RECORDS SUMMARY | 2024-12-20 16:59 | XMS_ITS | Clinical Summary ---
Author Organization [facility] Address [address] [facility] [address] [place] [address] Phone Care Team Providers Care Telephone Lineman Name Role Phone Unavailable Primary Care Provider [...] patient's age to complete this topic Insurance [facility] TC [place] [id number] [place] [address] [place] [id number]
== END 2024-12-20 16:09 | disposition home or self-care (01) ==
LOC: HO.HCS 15:04
PROVIDERS: PCP Internal Medicine; Visit Provider Nurse Practitioner Family
DX: I42.9 Cardiomyopathy, unspecified (principal); I21.19 ST elevation (STEMI) myocardial infarction involving other coronary artery of inferior wall; Z95.818 Presence of other cardiac implants and grafts; F03.90 Unspecified dementia, unspecified severity, without behavioral disturbance, psychotic disturbance, mood disturbance, and anxiety
CPT/HCPCS: 93298; 99214; G2211

== ENCOUNTER → 2024-12-20 15:03 | Outpatient (BNVA) | payer OTHER, SELFPAY | PROVIDERS: PCP Internal Medicine; Visit Provider Nurse Practitioner Family | DX: I42.9 Cardiomyopathy, unspecified (principal); I21.19 ST elevation (STEMI) myocardial infarction involving other coronary artery of inferior wall; F03.90 Unspecified dementia, unspecified severity, without behavioral disturbance, psychotic disturbance, mood disturbance, and anxiety; Z95.818 Presence of other cardiac implants and grafts | CPT/HCPCS: 99212 ==

== ENCOUNTER 2025-02-02 09:20 | Outpatient (REF) | payer OTHER, SELFPAY ==
[2025-02-02 09:34] LABS: MANUAL DIFF FLAG NO
--- OUTSIDE RECORDS SUMMARY | 2025-02-02 09:53 | XMS_ITS | Clinical Summary ---
Author Organization [facility] Address [address] [facility] [address] [place] [address] Phone Care Team Providers Care Door To Door Selling Agent Name Role Phone Unavailable Primary Care Provider [...] Due Date Last Done Comments Pneumococcal Vaccine: 50+ Ye ars (1 of 2 - PCV) 02/03/1964 Influenza Vaccine (Season Ended) 2025 Hepatitis B Vaccine Aged Out No longe r eligible based on patient's age to complete this topic Insurance [facility] tc [place] [id number] [place] [address] [place] [id number]
[2025-02-02 10:28] LABS: Basophils Percent Auto 0.3 % (0-2); Eosinophils Absolute Auto 0.1 X10*3/uL (0.0-0.4); Eosinophils Percent Auto 1.3 % (0-4); Hematocrit 43.7 % (42.0-52.0); Hemoglobin 14.4 g/dl (14.0-18.0); Imm Gran Abs Auto 0.01 X10*3/uL (0.00-0.03); Imm Gran Pct Auto 0.3 % (0.0-0.4); Lymphocytes Absolute Auto 1.1 X10*3/uL (1.2-4.9); Mean Corpuscular Hemoglobin 32.6 pg (27.0-33.0); Mean Corpuscular Volume 98.9 fL (80.0-98.0); Mean Platelet Volume 10.6 fL (9.4-12.4); Monocytes Absolute Auto 0.4 X10*3/uL (0.1-1.2); Monocytes Percent Auto 9.8 % (2-11); Neutrophils Absolute Auto 2.3 x10*3/uL (2.0-8.3); Neutrophils Percent Auto 59.3 % (45-73); Platelet Count 134 X10*3/uL (160-400); Red Blood Count 4.42 X10*6/uL (4.60-5.80); Red Cell Distribution Width 13.3 % (11.0-16.0); White Blood Count 3.8 X10*3/uL (4.8-10.8)
[2025-02-02 11:05] LABS: Alanine Aminotransferase 13 U/L (0-40); Alkaline Phosphatase 50 U/L (39-117); Anion Gap 14 (12-20); Aspartate Amino Transferase 20 U/L (5-37); Bilirubin Total 0.9 mg/dL (0.0-1.0); Blood Urea Nitrogen 17 mg/dL (9-16); Calcium 8.9 mg/dL (8.4-10.2); Carbon Dioxide 28 mmol/L (22-29); Chloride 105 mmol/L (96-108); Cholesterol 196 mg/dL (<200); Estimated Glomerular Filt Rate > 60; Glucose Random 95 mg/dL (60-115); HDL Cholesterol 79 mg/dL (>40); LDL Cholesterol Calculated 103 mg/dL (<100); Potassium 4.2 mmol/L (3.3-5.1); Sodium 143 mmol/L (135-145); TSH reflex Free T4 0.72 uIU/mL (0.32-4.0); Triglycerides 74 mg/dL (<150)
== END 2025-02-02 09:21 | disposition home or self-care (01) ==
LOC: HO.LAB 09:20
PROVIDERS: PCP Internal Medicine; Visit Provider Internal Medicine
DX: E89.2 Postprocedural hypoparathyroidism (principal); F02.80 Dementia in other diseases classified elsewhere, unspecified severity, without behavioral disturbance, psychotic disturbance, mood disturbance, and anxiety; I25.811 Atherosclerosis of native coronary artery of transplanted heart without angina pectoris; N13.8 Other obstructive and reflux uropathy; R63.4 Abnormal weight loss; Z95.818 Presence of other cardiac implants and grafts
CPT/HCPCS: 36415; 80053; 80061; 84443; 85025

== ENCOUNTER 2025-08-02 08:48 | Outpatient (AMB) | payer OTHER, SELFPAY ==
--- NOTE | 2025-08-02 08:54 | A.OFFVIS_ITS ---
Vital Signs 08/02/25 09:00 Height 5 ft 4 in Weight 97 lb 0.054 oz BMI 16.6 BP 100/64 Blood Pressure Location Lt brachial Position Sitting Pulse 72 Pulse Source Monitor Intake Visit Reasons: 6 month Manager Meat Required: No Accompanied by: Daughter Allergies No Known Allergies Allergy (Verified 12/20/24 15:33) Medication List - Last Reconciled 08/02/25 by Levi Ochoa MD aspirin 81 mg PO DAILY escitalopram oxalate 5 mg PO DAILY finasteride 5 mg PO DAILY 90 days rosuvastatin 40 mg PO DAILY tamsulosin 0.4 mg PO BEDTIME 90 days HPI Comments Details: Adonay returns for follow-up. I had seen last year in consultation after that, he saw our nurse practitioner. Then he returns to see me again today. Accompanied by daughter. Essentially he used to live in [place] but has moved to the local area. Per a prior echocardiogram at [facility], LVEF was diminished at 30-35%. At that time, it seems that he was admitted for witnessed syncope/unresponsiveness and chest pain. After that, it appears that the patient had an implantable loop recorder placed. Overall, it seems he is generally fine according daughter. He does have memory issues from dementia but otherwise no clear-cut cardiac type symptoms like angina. Recently, admitted to [facility] for UTI and sepsis and again had syncope but not thought to be cardiac in etiology. [facility] Medical History History of nicotine dependence Implantable loop recorder present Cardiomyopathy Dementia Surgical History History of thyroid surgery Family History Father Cancer Mother No problems noted. Brother Heart attack Social History Alcohol intake: never Patient Tobacco Use Status: Former Tobacco user Review of Systems Const Denies chills, Denies fatigue, Denies fever(s), Denies frequent falls, Denies weakness, Denies weight gain and Denies weight loss ENT Denies dizziness Card Denies chest pain, Denies leg edema, Denies lightheadedness, Denies palpitations, Denies dyspnea and Denies dyspnea on exertion Resp Denies cough, Denies dyspnea and Denies dyspnea on exertion GI Denies hematochezia Musc Denies abnormal gait, Denies muscle weakness, Denies numbness, Denies radiating pain into limb and Denies tingling Neuro Denies abnormal gait, Denies dizziness, Denies frequent falls, Denies numbness, Denies tingling and Denies weakness Endo Denies fatigue and Denies palpitations Physical Exam Vital Signs: Last Vital Signs Pulse 72 08/02/25 09:00 BP 100/64 08/02/25 09:00 BMI result Body Mass Index 16.6 Const General: comfortable and no acute distress Orientation/consciousness: patient oriented x3 HEENT Other: Unremarkable Head: Yes normal to inspection Neck Neck: Yes normal visual inspection Chest Chest palpation & inspection: normal inspection of the chest Resp Auscultation: clear to auscultation bilaterally Cardio Palpation: normal PMI Heart sounds: S1 normal heart sound present, S2 normal heart sound present, no gallops, no murmurs and no rubs GI Palpation (GI): Soft to palpation Back/Spine/Pelvis Other: unremarkable Skin General skin exam: no rashes or lesions noted Neuro General: patient oriented x3 Extrem General: Yes normal to inspection Psych Mental Status: mental status grossly normal Office Procedures EKG Details: EKG with underlying sinus rhythm at 72/Min; cannot exclude old inferior infarct; leftward axis; possible LVH; nonspecific ST-[place]; [place]. [id number], Complete Assessment & Plan Assessment & Plan (1) Cardiomyopathy: Code(s): I42.9 - Cardiomyopathy, unspecified Category: Medical Plan: Cardiac studies reviewed. Per echocardiogram at [facility] in 2021, LVEF 30-35% with severe global hypokinesis. There was csyq-lt-cazhxftt mitral regurgitation. In the more recent echocardiogram at [place], LVEF 50-55%. Inferolateral akinesis. In another echocardiogram from [place], 2022, LVEF 50-55%. Inferolateral wall thinned/severely hypokinetic. Auvl-ih-spsxvfeg mitral regurgitation. Zgtl-cq-paawblqe aortic regurgitation with mild ascending aortic dilatation. RVSP 37 mm Hg. In the exercise stress echocardiogram at [place], 7 METS on Arnel protocol; negative ETT component; echocardiographic portion with evidence of prior inferolateral NC. Overall, it seems that he has had a prior inferolateral myocardial infarction but no active symptoms. It does not appear that he underwent cardiac catheterization in the past and he does not need that at this time either as he has got no symptoms. Continue aspirin and statins. (2) Implantable loop recorder present: Code(s): Z95.818 - Presence of other cardiac implants and grafts Category: Medical Plan: It appears that we have attempted to transfer this from his prior comptometer operator but not successful. May have to ask again. It was checked today in clinic and there was no evidence of any atrial fibrillation or tachyarrhythmias or bradyarrhythmias. Plan Discussed with daughter. Total time spent including review of data, counseling, documentation, coordination of care-31 minutes. Coding Level of Care Code Est Pt Level 4 (54870) Complex EM visit Add On G2211 Diagnoses Cardiomyopathy I42.9 Implantable loop recorder present Z95.818 CPT Codes EKG - CPT: 30771-Mgwcrtcswpeuvjsuz, Complete ([id number])
[2025-08-02 09:00] VITALS: BP 100/64; PULSE 72; BMI 16.6
== END 2025-08-02 09:34 | disposition home or self-care (01) ==
LOC: HO.HCS 08:49
PROVIDERS: PCP Internal Medicine; Visit Provider Internal Medicine
DX: I42.9 Cardiomyopathy, unspecified (principal); Z95.818 Presence of other cardiac implants and grafts
CPT/HCPCS: 93010; 99214; G2211

== ENCOUNTER → 2025-08-02 08:48 | Outpatient (BNVA) | payer OTHER, SELFPAY | PROVIDERS: PCP Internal Medicine; Visit Provider Internal Medicine | DX: Z09 Encounter for follow-up examination after completed treatment for conditions other than malignant neoplasm (principal); R31.0 Gross hematuria; N40.0 Benign prostatic hyperplasia without lower urinary tract symptoms; Z87.440 Personal history of urinary (tract) infections; I42.9 Cardiomyopathy, unspecified; Z95.818 Presence of other cardiac implants and grafts | CPT/HCPCS: 51798; 93005; 99212 ==

== ENCOUNTER 2025-08-02 15:19 | Outpatient (AMB) | payer OTHER, SELFPAY ==
--- NOTE | 2025-08-02 15:36 | MHC.OFFVIS ---
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 who was accompanied by his daughter (Stan) at today's office visit. He has a past medical history of dementia and cardiomyopathy. He presents to the office today for follow-up of his gross hematuria. Of note, during last office visit approximately 9 months ago patient underwent in office cystoscopy 11/[address] Micky Tidwell that noted enlarged prostate but otherwise normal bladder. He was started on tamsulosin and finasteride. In discussion with the patient's daughter who provides much of today's health history given patient is a poor historian due to his dementia. She reports he had been doing well up until a week ago. She reports seeking emergency room care services at [facility] as patient had been more lethargic, nonverbal and had a fever. She reports he was hospitalized for approximately 5 days and was treated for urinary tract infection. She reports since hospitalization he has been doing well. She reports patient is compliant with Flomax and finasteride as prescribed. Unable to obtain urine for urinalysis today as patient unable to void however 69 mL. She denies patient to have any other bouts of gross hematuria. 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 However quit 3-[address] urogram 11/16 noted no renal calculi. The urinary bladder wall is thickened. Possible cystitis per radiology report. Patient's daughter currently denies patient to have any bothersome urinary issues. We did discussed potential causes of urinary tract infections as well as further treatment options and risks and benefits of these treatment options. All questions were answered. He otherwise offers no other issues or concerns at this time. Cytology 10/16: Atypical urothelial cells. [facility] Medical History History of nicotine dependence Implantable loop recorder present Cardiomyopathy Dementia Surgical History History of thyroid surgery Family History Father Cancer Mother No problems noted. Brother Heart attack Social History Alcohol intake: never Patient Tobacco Use Status: Former Tobacco user Review of Systems Const Unobtainable due to mental status Physical Exam Const General: cooperative, comfortable, no acute distress, well developed, alert, awake and tired appearing Orientation/consciousness: oriented to person Limitations: no limitations HEENT Head: Yes normal to inspection, Yes normocephalic and Yes atraumatic Ears: hearing grossly normal bilaterally Eyes General: appearance normal, both eyes and all related structures Neck Neck: Yes normal visual inspection and Yes trachea midline Chest Chest palpation & inspection: normal inspection of the chest Resp Effort & Inspection: normal respiratory effort and able to speak in complete sentences Cardio Rate: regular rate GI Inspection: Yes normal to inspection General: Yes no CVA tenderness Back/Spine/Pelvis Back: no CVA tenderness Skin General skin exam: no rashes or lesions noted Neuro General: oriented to person Extrem General: Yes normal to inspection Psych Appearance: grossly normal and well kempt Speech and movement: Normal speech and movement present and Clear speech present Affect: normal affect Attitude: cooperative Insight: Limited insight present (Psych) Judgement: Limited judgement present (Psych) Office Procedures Post Void Residual Post Residual Void Post Void Residual (PVR): 69 [id number] Void Residual by ultrasound Assessment & Plan Assessment & Plan (1) Gross hematuria: Code(s): R31.0 - Gross hematuria Category: Medical (2) Enlarged prostate: Code(s): N40.0 - Benign prostatic hyperplasia without lower urinary tract symptoms Category: Medical (3) Recent urinary tract infection: Code(s): Z87.440 - Personal history of urinary (tract) infections Category: Medical Plan Unable to obtain urine for urinalysis today as patient unable to void however PVR 69 mL. Continue finasteride and Flomax as prescribed. We did discussed potential causes of urinary tract infections as well as further treatment options and risks and benefits of these treatment options. Family currently denies any bothersome urinary issues. We discussed calling office with any UTI like symptoms. All questions were answered. Will attempt to obtain previous hospitalization records for continuity of care. Follow-up in 6 months with PVR; or sooner with any issues, concerns, and or questions. Orders: Orders AMB Urinalysis Automated Today Z13.9 - Encounter for screening, unspecified Patient Instructions: The patient had an opportunity to ask questions regarding the treatment plan. All questions were answered. Physical exam, labs, and imaging were discussed and reviewed in detail. As well as risks, benefits, and discussion of treatment choices. No major barriers to understanding were identified. The patient expressed understanding and agreement with the above treatment plan. The patient was made aware they should contact our office by phone for worsening of their current condition, the appearance of new symptoms, or with any questions or concerns. Compliance is encouraged with any medications and follow up testing that is ordered. It is a privilege to be allowed the opportunity to participate in? your urological care.? Again, if you have any questions or concerns If you have any questions or concerns please do not hesitate to contact me. The office is [phone]. This note is constructed using voice recognition software. While every effort has been made to ensure accuracy clip loading machine adjuster errors may have been included. Yours sincerely, BRENDON Gruber Coding Level of Care Code Est Pt Level 3 (29544) Complex EM visit Add On G2211 Diagnoses Gross hematuria R31.0 Enlarged prostate N40.0 Recent urinary tract infection Z87.440 CPT Codes Post Residual Void - PVR CPT Code: 98254-Jheu Void Residual by ultrasound ([id number])
--- OUTSIDE RECORDS SUMMARY | 2025-08-02 17:00 | XMS_ITS | Clinical Summary ---
Author Organization [facility] Address [address] [facility] [address] [place] [address] Phone Care Team Providers Care Customer Service Receptionist Name Role Phone Unavailable Primary Care Provider [...] Pneumococcal Vaccine: 50+ Ye ars (1 of 1 - PCV) 02/03/1994 Influenza Vaccine (#1) 2025 Hepatitis B Vaccine Aged Out No longe r eligible based on patient's age to complete this topic Insurance [facility] tc [employer] [id number] [place] [address] [employer] [id number]
== END 2025-08-02 16:14 | disposition home or self-care (01) ==
LOC: HO.HUSH 15:19
PROVIDERS: PCP Internal Medicine; Visit Provider Nurse Practitioner Family
DX: R31.0 Gross hematuria (principal); N40.0 Benign prostatic hyperplasia without lower urinary tract symptoms; Z87.440 Personal history of urinary (tract) infections
CPT/HCPCS: 99213; G2211